=== PATIENT | male | born 1990 | race American Indian/Alaskan Native ===

== ENCOUNTER 2021-06-26 20:06 | Emergency (ER) | payer OTHER ==
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
[2021-06-27 00:35] VITALS: BP 134/80
== END 2021-06-27 00:37 | disposition home or self-care (01) ==
LOC: ED 20:06
DX: S09.8XXA Other specified injuries of head, initial encounter (principal); V89.2XXA Person injured in unspecified motor-vehicle accident, traffic, initial encounter; Y93.89 Activity, other specified; Y92.89 Other specified places as the place of occurrence of the external cause; Y99.8 Other external cause status
CPT/HCPCS: 70450; 99283